=== PATIENT | male | born 1965 | race African-American/Black ===

== ENCOUNTER 2022-09-28 08:20 | Day surgery (SDC) | payer BC ==
[2022-09-26 09:24] VITALS: BMI 28.6
[2022-09-28 08:36] VITALS: RESP 18
[2022-09-28] MEDS ORDERED: BUPIVACAINE HCL/PF 0.25% (2.5MG/ML) 10 ML VIAL ONE (09:54)
[2022-09-28] MEDS ORDERED: LIDOCAINE HCL 1%, 10 MG/ML (20ML VIAL) ONE (09:55)
[2022-09-28] MEDS ORDERED: BUPIVACAINE HCL/PF 0.5% (5MG/ML) 10 ML VIAL ONE (09:55)
[2022-09-28] MEDS ORDERED: MIDAZOLAM HCL 2 MG/2 ML SINGLE DOSE VIAL ONE (10:51)
[2022-09-28] MEDS ORDERED: ceFAZolin SODIUM 1 GM VIAL ONE (11:01)
[2022-09-28] MEDS ORDERED: PROPOFOL 20 ML ONE (11:03)
[2022-09-28] MEDS ORDERED: DEXAMETHASONE SOD PHOSPHATE 4 MG/1 ML VIAL ONE (11:06)
[2022-09-28] MEDS ORDERED: ONDANSETRON 4 MG/2 ML VIAL ONE (11:06)
[2022-09-28] MEDS ORDERED: ALBUTEROL SO4 0.083% IH SOL 2.5 MG/3 ML VIAL.NEB. NEB ONE (11:22)
[2022-09-28 11:51] VITALS: TEMP 97.4
[2022-09-28 12:10] VITALS: BP 118/74; PULSE 68
== END 2022-09-28 12:30 | disposition home or self-care (01) ==
LOC: FASU 08:20
PROVIDERS: ATTEND Orthopaedic Surgery
PROC: 0LN70ZZ Release Right Hand Tendon, Open Approach (ICD-10-PCS; principal; 2022-09-28 11:11)
DX: M65.311 Trigger thumb, right thumb (principal)